=== PATIENT | female | born 1940 | race Caucasian/White ===

== ENCOUNTER 2017-10-17 10:29 | Outpatient (CLI) | payer MEDICARE, MEDICAID ==
[~2017-10-17 10:29] MED LIST: ALPR0.5T PO; ATEN100T PO; LOSA100T15 PO; WARF3TAB6 PO; WARF4TAB6 PO
== END 2017-10-17 23:59 | disposition home or self-care (01) ==
LOC: CT 10:29
PROVIDERS: ATTEND Internal Medicine Interventional Cardiology
DX: I25.10 Atherosclerotic heart disease of native coronary artery without angina pectoris (principal); I70.0 Atherosclerosis of aorta; I51.7 Cardiomegaly; M47.894 Other spondylosis, thoracic region
CPT/HCPCS: 71250-TC

== ENCOUNTER 2018-09-21 14:30 | Outpatient (CLI) | payer MEDICARE, MEDICAID ==
[~2018-09-21 14:30] MED LIST changes: -LOSA100T15 PO; +LOSA100T31 PO; +WARF3TAB59 PO; -WARF3TAB6 PO; -WARF4TAB6 PO; +WARF4TAB72 PO
[2018-09-21 15:23] LABS: APPEARANCE,URINE CLEAR (CLEAR); BILIRUBIN,URINE NEGATIVE (NEGATIVE); BLOOD, URINE 2+ Ery/uL (NEGATIVE); COLOR,URINE YELLOW (YELLOW); KETONES,URINE NEGATIVE (NEGATIVE); LEUKOCYTE ESTERASE ,URINE NEGATIVE (NEGATIVE); NITRITE, URINE NEGATIVE (NEGATIVE); PROTEIN,URINE NEGATIVE (NEGATIVE); UGLUCOSE NEGATIVE (NEGATIVE); UROBILINOGEN,URINE 0.2 EU/dL (0.2)
[2018-09-21 15:44] LABS: ALANINE AMINOTRANSFERASE 28 U/L (12-78); ALBUMIN 3.9 g/dL (3.4-5.0); ALKALINE PHOSPHATASE 71 U/L (46-116); ASPARTATE AMINOTRANSFERASE 19 U/L (15-37); BILIRUBIN,TOTAL 1.2 mg/dL (0.2-1.0); CALCIUM, SERUM 9.1 mg/dL (8.5-10.1); CARBON DIOXIDE 30 mmol/L (21-32); CHLORIDE 105 mmol/L (98-107); CREATININE 0.9 mg/dL (0.6-1.3); GLUCOSE 84 mg/dL (74-106); SODIUM SERUM 142 mmol/L (136-145); UREA NITROGEN, BLOOD 14 mg/dL (7-18)
[2018-09-21 15:46] LABS: BACTERIA,URINE None seen /HPF (None Seen); SQUAMOUS EPITHELIAL CELL,UR Few /HPF (None Seen); WBC,URINE 0-2 /HPF (0-3)
== END 2018-09-21 23:59 | disposition home or self-care (01) ==
LOC: LAB 14:30
PROVIDERS: ATTEND Internal Medicine Interventional Cardiology
DX: R53.83 Other fatigue (principal); R53.81 Other malaise; I10 Essential (primary) hypertension
CPT/HCPCS: 36415; 80053-TC; 81000-TC

== ENCOUNTER 2018-12-22 14:04 | Outpatient (CLI) | payer MEDICARE, MEDICAID ==
[2018-12-22 15:31] LABS: APPEARANCE,URINE CLEAR (CLEAR); BILIRUBIN,URINE NEGATIVE (NEGATIVE); BLOOD, URINE 1+ Ery/uL (NEGATIVE); COLOR,URINE YELLOW (YELLOW); KETONES,URINE NEGATIVE (NEGATIVE); LEUKOCYTE ESTERASE ,URINE NEGATIVE (NEGATIVE); NITRITE, URINE NEGATIVE (NEGATIVE); PH,URINE 6.5 (5.0-8.0); PROTEIN,URINE NEGATIVE (NEGATIVE); UGLUCOSE NEGATIVE (NEGATIVE); UROBILINOGEN,URINE 0.2 EU/dL (0.2)
[2018-12-22 15:43] LABS: BACTERIA,URINE None seen /HPF (None Seen); SQUAMOUS EPITHELIAL CELL,UR Rare /HPF (None Seen); WBC,URINE 0-2 /HPF (0-3)
== END 2018-12-22 23:59 | disposition home or self-care (01) ==
LOC: LAB 14:04
PROVIDERS: ATTEND Internal Medicine Interventional Cardiology
DX: R30.0 Dysuria (principal)
CPT/HCPCS: 81000-TC; 87086-TC

== ENCOUNTER 2019-02-19 15:12 | Emergency (ER) | payer MEDICARE, MEDICAID ==
[~2019-02-19] VITALS: Ht 162.6 cm; Wt 70.3 kg
--- NOTE | 2019-02-19 15:27 | NUR ---
CAME IN FOR BRUISING AT L UPPER EXTREMITY, DENIES INURY OR PAIN. TO ER BED 9, HOOKED TO MONITOR, PROVIDED W WARM BLANKET, AWAITING MD MARTINI
--- NOTE | 2019-02-19 15:35 | NUR ---
DR CANO AT BEDSIDE
[2019-02-19 15:49] VITALS: BP 177/88
--- NOTE | 2019-02-19 15:50 | NUR ---
DPatient discharged to home in stable condition. Written and verbal after care instructions given. Patient verbalizes understanding of instruction.
== END 2019-02-19 15:50 | disposition home or self-care (01) ==
LOC: ER 15:19
DX: R23.3 Spontaneous ecchymoses (principal); D68.9 Coagulation defect, unspecified; I48.91 Unspecified atrial fibrillation; I10 Essential (primary) hypertension; Z79.01 Long term (current) use of anticoagulants; Z90.89 Acquired absence of other organs; Z88.0 Allergy status to penicillin; Z91.011 Allergy to milk products; Z79.899 Other long term (current) drug therapy

== ENCOUNTER 2019-09-04 11:46 | Emergency (ER) | payer MEDICARE, OTHER ==
[~2019-09-04] VITALS: Ht 162.6 cm; Wt 70.8 kg
--- NOTE | 2019-09-04 12:00 | NUR ---
PT PRESENTED TO THE ER WITH A C/O COUGH WITH CONGESTION. PT AMBULATED TO ER 12 WITH A STEADY GAIT. PT WAS PLACED ON THE MONITOR AND CONTINUOUS PULSE OX. BP 168/88. O2 SAT IS 97%.
[2019-09-04 12:29] LABS: BASOPHILS % (AUTO) 0.7 % (0.0-2.0); EOSINOPHILS % (AUTO) 1.7 % (0.0-6.0); HEMATOCRIT 40 % (33-45); HEMOGLOBIN 12.9 g/dL (11.5-14.8); LYMPHOCYTES # (AUTO) 1.7 /CMM (0.8-4.8); MEAN CORPUSCULAR HGB CONC 32 g/dl (31.0-36.0); MEAN CORPUSCULAR VOLUME 87 fL (82-100); MONOCYTES # (AUTO) 0.8 /CMM (0.1-1.30); MONOCYTES % (AUTO) 10.9 % (2.0-12.0); NEUTROPHILS # (AUTO) 4.9 /CMM (1.8-8.9); NEUTROPHILS % (AUTO) 64.7 % (43.0-81.0); PLATELET COUNT (AUTO) 143 /CMM (150-450); RED BLOOD CELL COUNT(AUTO) 4.61 MIL/uL (4.0-5.2); WHITE BLOOD COUNT (AUTO) 7.6 K/uL (4.3-11.0)
[2019-09-04] MEDS ORDERED: IV NS 0.9% 500 ML BAG IV ONE (12:30)
[2019-09-04] MEDS ORDERED: ALBUTEROL FS 2.5 MG/3 ML VIAL.NEB NEB ONE (12:30)
[2019-09-04] MEDS ORDERED: IPRATROPIUM NEB FS 0.5 MG/2.5 ML AMPUL.NEB NEB ONE (12:30)
[2019-09-04] MEDS ORDERED: ALBUTEROL FS 2.5 MG/3 ML VIAL.NEB ONE (12:33)
[2019-09-04] MEDS ORDERED: IPRATROPIUM NEB FS 0.5 MG/2.5 ML AMPUL.NEB ONE (12:33)
[2019-09-04 12:42] LABS: CALCIUM, SERUM 8.8 mg/dL (8.5-10.1); CREATININE 0.9 mg/dL (0.6-1.3); POTASSIUM 3.6 mmol/L (3.5-5.1)
[2019-09-04 12:48] LABS: ALBUMIN 3.7 g/dL (3.4-5.0); BILIRUBIN,DIRECT 0.2 mg/dL (0.0-0.2); BILIRUBIN,TOTAL 0.9 mg/dL (0.2-1.0)
--- NOTE | 2019-09-04 13:13 | NUR ---
BREATHING TX FINISHED.
[2019-09-04 13:54] VITALS: BP 154/85
== END 2019-09-04 13:55 | disposition home or self-care (01) ==
LOC: ER 11:47
DX: J40 Bronchitis, not specified as acute or chronic (principal); I10 Essential (primary) hypertension; I48.91 Unspecified atrial fibrillation; Z90.89 Acquired absence of other organs; Z88.0 Allergy status to penicillin; Z91.011 Allergy to milk products; Z85.828 Personal history of other malignant neoplasm of skin; Z79.01 Long term (current) use of anticoagulants; Z79.899 Other long term (current) drug therapy
CPT/HCPCS: 36415; 71045; 80048; 80076; 85025; 94640; 99284; J7040

== ENCOUNTER 2019-10-26 13:16 | Emergency (ER) | payer MEDICARE, OTHER ==
[~2019-10-26] VITALS: Ht 162.6 cm; Wt 68.0 kg
--- NOTE | 2019-10-26 13:40 | NUR ---
patient came in to the er c/o "1H ago had blurred vision/moving left eye lasted 15min NOW normal". on room air, breathing evenly and unlabored. connected to the monitor and pulse ox. kept comfortable, will continue to monitor accordingly.
[2019-10-26 14:10] LABS: BASOPHILS % (AUTO) 0.3 % (0.0-2.0); EOSINOPHILS % (AUTO) 6.7 % (0.0-6.0); HEMATOCRIT 38 % (33-45); HEMOGLOBIN 12.4 g/dL (11.5-14.8); LYMPHOCYTES # (AUTO) 2.3 /CMM (0.8-4.8); LYMPHOCYTES % (AUTO) 27.6 % (20.0-44.0); MEAN CORPUSCULAR HGB CONC 32 g/dl (31.0-36.0); MEAN CORPUSCULAR VOLUME 87 fL (82-100); MONOCYTES # (AUTO) 0.7 /CMM (0.1-1.30); MONOCYTES % (AUTO) 8.5 % (2.0-12.0); NEUTROPHILS # (AUTO) 4.8 /CMM (1.8-8.9); NEUTROPHILS % (AUTO) 56.9 % (43.0-81.0); PLATELET COUNT (AUTO) 143 /CMM (150-450); RED BLOOD CELL COUNT(AUTO) 4.38 MIL/uL (4.0-5.2); WHITE BLOOD COUNT (AUTO) 8.4 K/uL (4.3-11.0)
[2019-10-26 14:15] LABS: CREATININE 0.9 mg/dL (0.6-1.3)
[2019-10-26 16:20] VITALS: BP 145/71
--- NOTE | 2019-10-26 16:20 | NUR ---
Patient discharged to home in stable condition. Written and verbal after care instructions given. Patient verbalizes understanding of instruction.IV removed. Catheter intact and site benign. Pressure and 4x4 applied to site. No bleeding noted.
== END 2019-10-26 16:20 | disposition home or self-care (01) ==
LOC: ER 13:16
DX: H43.391 Other vitreous opacities, right eye (principal); I10 Essential (primary) hypertension; E78.5 Hyperlipidemia, unspecified; I48.91 Unspecified atrial fibrillation; Z90.89 Acquired absence of other organs; Z98.890 Other specified postprocedural states; Z85.828 Personal history of other malignant neoplasm of skin; Z85.22 Personal history of malignant neoplasm of nasal cavities, middle ear, and accessory sinuses; Z88.0 Allergy status to penicillin; Z91.011 Allergy to milk products; Z79.01 Long term (current) use of anticoagulants; Z79.899 Other long term (current) drug therapy
CPT/HCPCS: 36415; 71045-TC; 80048-TC; 85025-TC; 85730-TC

== ENCOUNTER 2020-05-15 08:21 | Emergency (ER) | payer MEDICARE, OTHER ==
[~2020-05-15] VITALS: Ht 162.6 cm; Wt 68.0 kg
--- NOTE | 2020-05-15 08:21 | NUR ---
PT BIB SELF C/O BACK PAIN AND PALPITATIONS STARTED 30MINS MASTER IN CHANCERY. PT IS AAOX4, NOT IN RESPIRATORY DISTRESS, HOOKED TO TUMBLING INSTRUCTOR, KEPT RESTED AND COMFORTABLE. WILL CONTINUE TO MONITOR.
--- NOTE | 2020-05-15 08:30 | NUR ---
AT BEDSIDE FOR EVAL.
--- NOTE | 2020-05-15 08:35 | NUR ---
IV LINE ESTABLISHED BLOOD DRAWN AND SENT TO LAB.
--- NOTE | 2020-05-15 08:42 | NUR ---
CALLED DR. SCHAEFER
[2020-05-15 08:59] LABS: BASOPHILS % (AUTO) 0.1 % (0.0-2.0); EOSINOPHILS % (AUTO) 0.2 % (0.0-6.0); HEMATOCRIT 42 % (33-45); HEMOGLOBIN 13.2 g/dL (11.5-14.8); LYMPHOCYTES % (AUTO) 26.6 % (20.0-44.0); MEAN CORPUSCULAR HGB CONC 32 g/dl (31.0-36.0); MEAN CORPUSCULAR VOLUME 87 fL (82-100); MONOCYTES # (AUTO) 1.2 /CMM (0.1-1.30); MONOCYTES % (AUTO) 8.2 % (2.0-12.0); NEUTROPHILS # (AUTO) 9.7 /CMM (1.8-8.9); NEUTROPHILS % (AUTO) 64.9 % (43.0-81.0); PLATELET COUNT (AUTO) 172 /CMM (150-450)
[2020-05-15] MEDS ORDERED: DILTIAZEM HCL 50 MG IV IV ONE (09:00)
--- NOTE | 2020-05-15 09:00 | NUR ---
METEOROLOGICAL TECHNICIAN AT BEDSIDE FOR XRAY.
[2020-05-15] MEDS ORDERED: DILTIAZEM HCL 50 MG IV ONE (09:05)
--- NOTE | 2020-05-15 09:22 | NUR ---
PT AMB TO BR. URINE COLLECTED & SENT TO LAB.
[2020-05-15 09:36] LABS: APPEARANCE,URINE Clear (CLEAR); BILIRUBIN,URINE Negative (NEGATIVE); BLOOD, URINE Moderate Ery/uL (NEGATIVE); COLOR,URINE Yellow (YELLOW); KETONES,URINE Negative (NEGATIVE); LEUKOCYTE ESTERASE ,URINE Negative (NEGATIVE); NITRITE, URINE Negative (NEGATIVE); PROTEIN,URINE 100 mg/dl (NEGATIVE); UGLUCOSE Negative (NEGATIVE); UROBILINOGEN,URINE 0.2 EU/dL (0.2)
[2020-05-15] MEDS ORDERED: ACETAMINOPHEN ES 500 MG TABLET ONE (09:40)
[2020-05-15] MEDS ORDERED: ATOR20TA PO (09:42)
[2020-05-15 09:48] LABS: BACTERIA,URINE Rare /HPF (None Seen); SQUAMOUS EPITHELIAL CELL,UR Few /HPF (None Seen)
[2020-05-15] MEDS ORDERED: ACETAMINOPHEN ES 500 MG TABLET PO ONE (10:00)
[2020-05-15 10:13] LABS: ALANINE AMINOTRANSFERASE 24 U/L (12-78); ALBUMIN 3.9 g/dL (3.4-5.0); ALKALINE PHOSPHATASE 60 U/L (46-116); ASPARTATE AMINOTRANSFERASE 27 U/L (15-37); BILIRUBIN,DIRECT 0.2 mg/dL (0.0-0.2); CARBON DIOXIDE 28 mmol/L (21-32); CHLORIDE 101 mmol/L (98-107); GLUCOSE 173 mg/dL (74-106); POTASSIUM 3.5 mmol/L (3.5-5.1); SODIUM SERUM 138 mmol/L (136-145); TOTAL PROTEIN, SERUM 7.5 g/dL (6.4-8.2); UREA NITROGEN, BLOOD 21 mg/dL (7-18)
[2020-05-15] MEDS ORDERED: CT SWABBABLE VALVE TRANS SET 1 EA INFUS.SET MC ONE (10:47)
[2020-05-15] MEDS ORDERED: IOHEXOL-350 100 ML VIAL IV ONE (10:47)
[2020-05-15] MEDS ORDERED: IV NS 0.9% 250 ML IV ONE (10:48)
[2020-05-15 11:53] VITALS: BP 147/88
--- NOTE | 2020-05-15 11:53 | NUR ---
IV removed. Catheter intact and site benign. Pressure and 4x4 applied to site. No bleeding noted. Patient discharged to home in stable condition. Written and verbal after care instructions given. Patient verbalizes understanding of instruction.
== END 2020-05-15 11:54 | disposition home or self-care (01) ==
LOC: ER 08:30
DX: I48.20 Chronic atrial fibrillation, unspecified (principal); I10 Essential (primary) hypertension; E78.5 Hyperlipidemia, unspecified; Z90.89 Acquired absence of other organs; Z98.890 Other specified postprocedural states; Z88.0 Allergy status to penicillin; Z91.011 Allergy to milk products; Z79.899 Other long term (current) drug therapy; Z79.01 Long term (current) use of anticoagulants
CPT/HCPCS: 36415; 71045; 71275; 80048; 80076; 81001; 84484; 85025; 85610; 93005 ×3; 99285; J3490; J7050; Q9967; 81000-TC

== ENCOUNTER 2020-12-12 13:44 | Outpatient (CLI) | payer MEDICARE, OTHER ==
[~2020-12-12 13:44] MED LIST changes: +ATOR20TA PO; -WARF3TAB59 PO
== END 2020-12-12 23:59 | disposition home or self-care (01) ==
LOC: RAD 13:44
PROVIDERS: ATTEND Internal Medicine Interventional Cardiology
DX: I51.7 Cardiomegaly (principal); I70.0 Atherosclerosis of aorta; M47.814 Spondylosis without myelopathy or radiculopathy, thoracic region
CPT/HCPCS: 71046

== ENCOUNTER 2020-12-21 09:44 | Outpatient (CLI) | payer MEDICARE, OTHER | END 2020-12-21 23:59 | disposition home or self-care (01) | LOC: RAD 09:44 | PROVIDERS: ATTEND Internal Medicine Interventional Cardiology | DX: J98.4 Other disorders of lung (principal) | CPT/HCPCS: 71046 ==

== ENCOUNTER 2025-06-19 12:18 | Emergency (ER) | payer MEDICARE, OTHER ==
[~2025-06-19] VITALS: Ht 165.1 cm; Wt 67.6 kg
[2025-06-19] MEDS ORDERED: MECLIZINE HCL 25 MG TABLET ONE (12:37)
[2025-06-19 12:39] LABS: PLATELET COUNT (AUTO) 165 K/uL (150-450); RED BLOOD CELL COUNT(AUTO) 4.94 MIL/uL (4.0-5.2); RED CELL DISTRIBUTION WIDTH 15.2 % (11.5-15.0); WHITE BLOOD COUNT (AUTO) 9.6 K/uL (4.3-11.0)
[2025-06-19] MEDS: MECLIZINE HCL 25 MG TABLET PO ONE (12:41)
[2025-06-19 12:57] LABS: CALCIUM, SERUM 8.7 mg/dL (8.5-10.1); CREATININE 1.0 mg/dL (0.6-1.3); SODIUM SERUM 141 mmol/L (136-145); UREA NITROGEN, BLOOD 12 mg/dL (7-18)
[2025-06-19] MEDS: ACETAMINOPHEN ES 500 MG TABLET PO ONE (13:32)
[2025-06-19] MEDS ORDERED: LABETALOL 20 MG/4 ML VIAL ONE (13:41)
[2025-06-19] MEDS: LABETALOL HCL IV 100MG VIAL IV ONE (13:56)
[2025-06-19 14:56] LABS: APPEARANCE,URINE CLEAR (CLEAR); BLOOD, URINE 1+ Ery/uL (NEGATIVE); LEUKOCYTE ESTERASE ,URINE NEGATIVE (NEGATIVE); NITRITE, URINE NEGATIVE (NEGATIVE); UGLUCOSE NEGATIVE (NEGATIVE)
[2025-06-19 14:59] VITALS: BP 146/81; TEMP 97.7; O2SAT 97
[2025-06-19 15:09] LABS: ADD URINE CULTURE NO; SQUAMOUS EPITHELIAL CELL,UR 0-2 /HPF (None Seen)
== END 2025-06-19 15:00 | disposition home or self-care (01) ==
LOC: ER 12:26
DX: R51.9 Headache, unspecified (principal); I11.9 Hypertensive heart disease without heart failure; I48.91 Unspecified atrial fibrillation; E78.5 Hyperlipidemia, unspecified; Z79.01 Long term (current) use of anticoagulants; Z79.899 Other long term (current) drug therapy; Z85.72 Personal history of non-Hodgkin lymphomas; Z85.828 Personal history of other malignant neoplasm of skin; Z88.0 Allergy status to penicillin; Z90.49 Acquired absence of other specified parts of digestive tract; Z91.0110 Allergy to milk products, unspecified
CPT/HCPCS: 99285; 96374; 70450; 93005; 85025; 80048; 81001; 36415; 84484; J3490; J8597